=== PATIENT | female | born 1950 | race Caucasian/White ===

== ENCOUNTER 2018-03-27 19:32 | Emergency (ER) | payer MEDICARE, OTHER ==
[2018-03-27] MEDS: IBUPROFEN 800 MG TAB PO (22:44)
== END 2018-03-28 00:08 | disposition home or self-care (01) ==
LOC: FTE 03-28 00:08
DX: S89.91XA Unspecified injury of right lower leg, initial encounter (principal); I10 Essential (primary) hypertension; X58.XXXA Exposure to other specified factors, initial encounter; Y92.9 Unspecified place or not applicable
CPT/HCPCS: 73562; 73590; 99283-25